=== PATIENT | female | born 1945 | race Caucasian/White ===

== ENCOUNTER 2025-02-17 13:36 | Emergency (ER) | payer OTHER ==
[2025-02-17 13:41] VITALS: RESP 18; TEMP 98.4
[2025-02-17] MEDS ORDERED: ONDANSETRON 4 MG/2 ML VIAL ONE (14:27)
[2025-02-17 14:30] LABS: MCHC 32.9 g/dl (32.2-35.5); MEAN CELL VOLUME 94.4 fl (79.4-94.8); MEAN PLT VOLUME 12.2 fl (9.4-12.3); RDW 12.8 % (12.4-16.6)
[2025-02-17] MEDS: ONDANSETRON 4 MG/2 ML VIAL IVPB ONE (14:30)
[2025-02-17] MEDS: SODIUM CHLORIDE 1,000 ML IV ONE (14:30)
[2025-02-17 14:57] LABS: ALK PHOS 107.0 U/L (45-117); CO2 22.0 mmol/L (21-32); CREATININE 0.8 mg/dl (0.6-1.3); GLUCOSE,RANDOM 174.0 mg/dl (74-106); SGOT/AST 28.0 U/L (15-37); SGPT/ALT 23.0 U/L (7-52); TOT PROT 7.8 g/dl (6.4-8.2)
[2025-02-17] MEDS: SODIUM CHLORIDE 500 ML IV STA (16:00)
[2025-02-17 16:47] VITALS: BP 122/63; PULSE 85
[2025-02-17 18:50] LABS: HIV INTERPRETATION NEGATIVE (NEGATIVE)
[2025-02-17 18:51] LABS: HCV DIAGNOSTIC IN-HOUSE W/RFLX NON-REACTIVE (NONREACTIVE)
== END 2025-02-17 17:10 | disposition home or self-care (01) ==
LOC: FER 13:36
PROC: 3E033GC Introduction of Other Therapeutic Substance into Peripheral Vein, Percutaneous Approach (ICD-10-PCS; principal; 2025-02-17)
PROC: 3E0337Z Introduction of Electrolytic and Water Balance Substance into Peripheral Vein, Percutaneous Approach (ICD-10-PCS; 2025-02-17)
PROC: 3E0337Z Introduction of Electrolytic and Water Balance Substance into Peripheral Vein, Percutaneous Approach (ICD-10-PCS; 2025-02-17)
DX: K52.9 Noninfective gastroenteritis and colitis, unspecified (principal); R11.10 Vomiting, unspecified
CPT/HCPCS: 36415; 80053; 83690; 85025; 86803; 87389; 99284-25